=== PATIENT | male | born 1950 ===

== ENCOUNTER → 2018-06-14 13:20 | Outpatient (REF) | payer MEDICARE, OTHER, SELFPAY | LOC: LAB 13:20 | PROVIDERS: Visit Provider Dermatology MOHS-Micrographic Surgery | DX: Z48.02 Encounter for removal of sutures (principal); D04.5 Carcinoma in situ of skin of trunk; D22.5 Melanocytic nevi of trunk; L53.8 Other specified erythematous conditions | CPT/HCPCS: 87070; 87075; 87077; 87147; 87186; 87205 ==